=== PATIENT | male | born 1955 | race Caucasian/White ===

== ENCOUNTER 2018-12-05 15:16 | Outpatient (CLI) | payer MEDICAID ==
[2018-12-05 16:00] LABS: BASOPHILS # (AUTO) 0.1 10^3/uL (0.0-0.1); BASOPHILS % (AUTO) 0.7 %; EOSINOPHILS # (AUTO) 0.2 10^3/uL (0.0-0.7); EOSINOPHILS % (AUTO) 2.8 %; HGB - HEMOGLOBIN 16.4 g/dL (14.0-18.0); LYMPHOCYTES % (AUTO) 29.5 %; MEAN CORPUSCULAR HEMOGLOBIN 32.1 pg (27.0-31.0); MEAN CORPUSCULAR HGB CONC 33.8 g/dL (32.0-36.0); MEAN CORPUSCULAR VOLUME 94.9 fL (80.0-94.0); MEAN PLATELET VOLUME 9.7 fL (7.4-11.4); MONOCYTES # (AUTO) 0.5 10^3/uL (0.0-1.0); MONOCYTES % (AUTO) 7.5 %; NEUTROPHILS # (AUTO) 3.9 10^3/uL (1.5-6.6); NEUTROPHILS % (AUTO) 58.8 %; PLT - PLATELET COUNT 305 10^3/uL (130-450); RED BLOOD COUNT 5.11 10^6/uL (4.70-6.10); RED CELL DISTRIBUTION WIDTH 12.1 % (12.0-15.0); WHITE BLOOD COUNT 6.7 x10^3/uL (4.8-10.8)
[2018-12-05 16:17] LABS: ALBUMIN 4.6 g/dL (3.2-5.5); ALBUMIN/GLOBULIN RATIO 1.6 (1.0-2.2); ALKALINE PHOSPHATASE 60 IU/L (42-121); ALT ALANINE AMINOTRANSFERASE 42 IU/L (10-60); AST ASPARTATE AMINOTRANSFERASE 25 IU/L (10-42); BILIRUBIN,TOTAL 0.9 mg/dL (0.2-1.0); BUN - BLOOD UREA NITROGEN 9 mg/dL (6-20); CALCIUM 9.4 mg/dL (8.5-10.3); CARBON DIOXIDE - CO2 28 mmol/L (21-32); CHLORIDE 101 mmol/L (101-111); CHOL/HDL RATIO 5.3 (<5.0); CHOLESTEROL 202 mg/dL; GFR - MDRD 75 (>89); GLUCOSE 99 mg/dL (70-100); HDL CHOLESTEROL 38 mg/dL; LDL CHOLESTEROL,CALCULATED 112 mg/dL; LDL/HDL RATIO 2.9 (<3.6); SODIUM 140 mmol/L (135-145); TOTAL PROTEIN 7.4 g/dL (6.7-8.2); VLDL CHOLESTEROL 52 mg/dL
[2018-12-06 11:36] LABS: HEPATITIS C ANTIBODY NON-REACTIVE (NON-REACTIVE)
== END 2018-12-05 15:17 | disposition home or self-care (01) ==
LOC: LAB 15:16
PROVIDERS: ATTEND Internal Medicine
DX: Z12.5 Encounter for screening for malignant neoplasm of prostate (principal); Z11.59 Encounter for screening for other viral diseases; Z12.11 Encounter for screening for malignant neoplasm of colon; Z12.12 Encounter for screening for malignant neoplasm of rectum; D64.9 Anemia, unspecified; Z13.6 Encounter for screening for cardiovascular disorders; Z79.899 Other long term (current) drug therapy
CPT/HCPCS: 36415; 80053; 80061; 83721; 84153; 84443; 85025; 86803

== ENCOUNTER 2018-12-06 08:00 | Outpatient (CLI) | payer MEDICAID | END 2018-12-06 23:59 | disposition home or self-care (01) | LOC: LAB.R 08:00 | PROVIDERS: ATTEND Internal Medicine | DX: Z12.5 Encounter for screening for malignant neoplasm of prostate (principal); Z11.59 Encounter for screening for other viral diseases; Z12.11 Encounter for screening for malignant neoplasm of colon; Z12.12 Encounter for screening for malignant neoplasm of rectum; D64.9 Anemia, unspecified; Z13.6 Encounter for screening for cardiovascular disorders; Z79.899 Other long term (current) drug therapy | CPT/HCPCS: 82274 ==

== ENCOUNTER 2021-06-12 11:08 | Day surgery (SDC) | payer MEDICAID ==
[~2021-06-12 11:08] MED LIST: PROPOFOL 500 MG/50 ML 500 MG/50 ML VIAL ONE
[2021-06-12] MEDS ORDERED: LACTATED RINGERS 1,000 ML IV ONE ×2 (11:30→12:44)
--- NOTE | 2021-06-12 11:55 | ANESTHESIA ---
Pre-Anesthesia VS, & Labs - Diagnosis screening - Procedure colonoscopy Vital Signs: Temp Pulse Resp BP Pulse Ox 36.0 C L 89 16 151/93 H 98 06/12/21 11:15 06/12/21 11:15 06/12/21 11:15 06/12/21 11:15 06/12/21 11:15 Height: 5 ft 7 in Weight (kg): 74.4 kg Body Mass Index: 25.7 BMI Classification: Overweight - NPO >8 hours Home Medications and Allergies Home Medications: Ambulatory Orders No Known Home Medications 06/11/21 No Known Home Medications 06/11/21 Allergies/Adverse Reactions: Allergies Allergy/AdvReac Type Severity Reaction Status Date / Time No Known Drug Allergies Allergy Verified 06/11/21 13:43 Anes History & Medical History - Anesthetic History Anesthesia Complications: reports: No previous complications Family history of Anesthesia Complications: Denies Family history of Malignant Hyperthermia: Denies - Medical History Cardiovascular: reports: None Pulmonary: reports: None Gastrointestinal: reports: None Urinary: reports: None Musculoskeletal: reports: None Skin: reports: None Smoking Status: Current every day smoker Exam General: Alert, Oriented x3, Cooperative Dental: Poor dentition Mouth Openin Fingerbreadth Mallampati classification: II Thyromental Distance: 4-6 cm Respiratory: Lungs clear Cardiovascular: Regular rate Plan Anesthesia Type: Total IV Consent for Procedure(s) Verified and Reviewed: Yes Code Status: Attempt Resuscitation ASA classification: 2-Mild systemic disease Is this case an emergency?: No
--- NOTE | 2021-06-12 12:14 | HISTORY & PHYSICAL EXAMINATION ---
Chief Complaint - Chief Complaint Chief Complaint: here for colon cancer screening History of Present Illness - History Obtained From Records Reviewed: yes History obtained from: pt Exam Limitations: none - History of Present Illness HPI Comment/Other: here for colon cancer screening. no abdominal problems History - Past Medical History Cardiovascular: reports: None Respiratory: reports: None GI: reports: None : reports: None HEENT: reports: None Psych: reports: None Musculoskeletal: reports: None Derm: reports: None MRSA Hx?: No Meds/Allgy - Home Medications Home Medications: Ambulatory Orders Medication Instructions Recorded Confirmed No Known Home Medications 06/11/21 06/11/21 - Allergies Allergies/Adverse Reactions: Allergies Allergy/AdvReac Type Severity Reaction Status Date / Time No Known Drug Allergies Allergy Verified 06/11/21 13:43 Review of Systems - Other Findings Other Findings: 10 pt ros as above otherwise unremarkable Exam - Vital Signs Vital Signs: Vital Signs x48h Temp Pulse Resp BP Pulse Ox 06/12/21 11:15 36.0 C L 89 16 151/93 H 98 - Physical Exam General Appearance: positive: No acute distress, Alert Eyes Bilateral: positive: PERRL, EOMI, No scleral icterus ENT: positive: No signs of dehydration Neck: positive: No JVD, Trachea midline Respiratory: positive: No respiratory distress, Breath sounds nml Cardiovascular: positive: Regular rate & rhythm Abdomen: positive: Non-tender, No distention Neurologic/Psychiatric: positive: Oriented x3 Conclusion/Plan - Problem List (1) Colon cancer screening Conclusion/Plan: plan colonoscopy. parq held and consent obtained
[2021-06-12 13:01] VITALS: BP 117/79
--- NOTE | 2021-06-12 13:52 | ANESTHESIA POST OP EVALUATION ---
Anesthesia Post Eval - Post Anesthesia Eval Vitals: Last Vital Signs Temp 36.2 C L 06/12/21 13:01 Pulse 74 06/12/21 13:01 Resp 14 06/12/21 13:01 BP 117/79 06/12/21 13:01 Pulse Ox 97 06/12/21 13:01 CV Function Including HR & BP: Stable Pain Control: Satisfactory Nausea & Vomiting: Negative Mental Status: Baseline Respiratory Status: Airway Patent Hydration Status: Satisfactory Anesthesia Complications: None
== END 2021-06-12 11:09 | disposition home or self-care (01) ==
LOC: SDS 11:08
PROVIDERS: ATTEND Surgery
PROC: 0DBM8ZX Excision of Descending Colon, Via Natural or Artificial Opening Endoscopic, Diagnostic (ICD-10-PCS; principal; 2021-06-12 12:00)
DX: Z12.11 Encounter for screening for malignant neoplasm of colon (principal); D12.4 Benign neoplasm of descending colon; K57.30 Diverticulosis of large intestine without perforation or abscess without bleeding; K63.5 Polyp of colon
CPT/HCPCS: 45385; J7120

== ENCOUNTER 2023-07-15 12:32 | Emergency (ER) | payer MEDICAID ==
--- NOTE | 2023-07-15 14:24 | ED Physician Documentation ---
PD HPI HEENT - Stated complaint Stated Complaint: NASAL PRESSURE - Chief complaint Chief Complaint: Resp - History obtained from History obtained from: Patient - Treatment prior to arrival Treatment prior to arrival: Patient presents is about a week long history of sinus congestion with particular pain in the left nare and left sinuses into the head. He has not had a fever to his knowledge, no ear pain or sore throat. He does have occasional cough but denies any dyspnea or chest pain, no GI or symptoms. No known sick contacts But states he has been working at [employer] recently and has been exposed to a lot of dust and pollen. He also smokes 1 to 2 cigarettes a day but denies any history of COPD. He has tried a number of different [id number] medication without any relief including decongestants, cough medications. PD PAST MEDICAL HISTORY - Past Medical History Past Medical History: No Cardiovascular: None Respiratory: None Endocrine/Autoimmune: None GI: Colon polyps : None HEENT: None Psych: None Musculoskeletal: None Derm: None - Past Surgical History Past Surgical History: Yes General: Colonoscopy - Present Medications Home Medications: Ambulatory Orders Medication Instructions Recorded Confirmed Amox/Clav 875/125 [Augmentin 1 tablet PO Q12H 10 Days #10 tablet 07/15/23 875/125 Tab] Fluticasone [Flonase] 1 sprays RACHELLE DAILY #16 gm 07/15/23 - Allergies Allergies/Adverse Reactions: Allergies Allergy/AdvReac Type Severity Reaction Status Date / Time No Known Drug Allergies Allergy Verified 07/15/23 13:02 - Social History Does the pt smoke?: No Smoking Status: Never smoker Does the pt drink ETOH?: No PD ED PE NORMAL - Vitals Vital signs reviewed: Yes - General General: Alert and oriented X 3, No acute distress, Well developed/nourished - HEENT HEENT: Atraumatic, Moist mucous membranes, Pharynx benign, Other (Noticed dry, no scabs or lesions. Tenderness over the left maxillary sinus and frontal sinus.) - Neck Neck: Supple, no meningeal sign, No adenopathy - Cardiac Cardiac: RRR, No murmur - Respiratory Respiratory: No respiratory distress, Clear bilaterally - Abdomen Abdomen: Normal bowel sounds, Soft, Non tender, Non distended Results - Vitals Vitals: Vital Signs - 24 hr 07/15/23 12:55 Temperature 36.2 C L Heart Rate 93 Respiratory 17 Rate Blood Pressure 132/85 H O2 Saturation 98 Oxygen O2 Source Room air PD Medical Decision Making - ED course Complexity details: reviewed results, re-evaluated patient, considered differential, d/w patient ED course: 67-year-old male presented with sinus congestion, sinus pain, cough for the last week. He is well-appearing here on physical exam, afebrile nontoxic oxygenating well on room air. His lungs are clear, his exam is only concerning for left facial tenderness with palpation over his sinuses, no erythema or swelling. I recommend that we treat for sinusitis, Augmentin x 5 days, Flonase, and encouraged saline nasal spray as well, and he can use a small amount of Vaseline or bacitracin to moisturize the inside of his naris. He was encouraged to stop smoking, consider daily allergy medicine, and return Precautions reviewed. Departure - Departure Disposition: 01 Home, Self Care Clinical Impression: Acute sinusitis Qualifiers: Sinusitis location: unspecified location Recurrence: non-recurrent Qualified Code(s): J01.90 - Acute sinusitis, unspecified Condition: Good Instructions: ED Sinusitis Abx Tx Prescriptions: Amox/Clav 875/125 [Augmentin 875/125 Tab] 1 tablet PO Q12H 10 Days #10 tablet Fluticasone [Flonase] 1 sprays RACHELLE DAILY #16 gm Comments: You have sinusitis which is inflammation in the sinuses, and I have prescribed an antibiotic and a nasal spray. He you may also consider using Vaseline on the inside of the left nose due to the soreness in the area. Humidification can help, and you can take ibuprofen or Tylenol for pain. Return if you have new or worsening symptoms. Forms: PCP List
[2023-07-15 14:48] VITALS: BP 122/75; O2SAT 100
[2023-07-15 15:01] LABS: B. PARAPERTUSSIS- RESP PCR PAN NOT DETECTED; B. PERTUSSIS- RESP PCR PANEL NOT DETECTED; C. PNEUMONIAE- RESP PCR PANEL NOT DETECTED; CORONAVIRUS 229E-RESP PCR NOT DETECTED; CORONAVIRUS HKU1-RESP PCR NOT DETECTED; CORONAVIRUS NL63-RESP PCR NOT DETECTED; CORONAVIRUS OC43-RESP PCR NOT DETECTED; HUMAN METAPNEUMOVIRUS NOT DETECTED; INFLUENZA A- RESP PCR PANEL NOT DETECTED; INFLUENZA B - RESP PCR PANEL NOT DETECTED; M. PNEUMONIAE- RESP PCR PANEL NOT DETECTED; PARAINFLUENZA VIRUS 1 NOT DETECTED; PARAINFLUENZA VIRUS 2 NOT DETECTED; PARAINFLUENZA VIRUS 3 NOT DETECTED; PARAINFLUENZA VIRUS 4 NOT DETECTED; RHINOVIRUS/ENTEROVIRUS NOT DETECTED; RSV- RESP PCR PANEL NOT DETECTED; SARS-CoV-2 -RESP PCR PANEL NOT DETECTED
== END 2023-07-15 14:45 | disposition home or self-care (01) ==
LOC: ED 12:32
DX: J01.90 Acute sinusitis, unspecified (principal); F17.200 Nicotine dependence, unspecified, uncomplicated
CPT/HCPCS: 87633; 99283